=== PATIENT | female | born 1995 | race Two or more races ===

== ENCOUNTER 2017-01-11 12:07 | Emergency (ER) | payer OTHER ==
--- NOTE | ~2017-01-11 | ER ---
PATIENT'S NAME: [facility] AGE: 21 Y [address] ROOM: [place] [address] LOCATION: [facility] ADMIT DATE: 01/11/2017 ER/Outpatient Report DISCHARGE DATE: 01/11/2017 FAMILY PHYSICIAN: PHYSICIAN, NO ATTENDING PHYSICIAN: Almas Chavez Time of Arrival: 1207 hours. Time of Evaluation/Exam: 1207 hours. CHIEF COMPLAINT: Burn to the left breast. 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 She states it also splashed her left arm. She denies any other injury. Has not been sick in any way prior to this. ALLERGIES: PENICILLIN. CURRENT MEDICATIONS: None. PAST MEDICAL HISTORY: Benign. PAST SURGICAL HISTORY: Negative. SOCIAL HISTORY: She denies the use of tobacco, drugs, or alcohol. REVIEW OF SYSTEMS: All negative other than those mentioned in the HPI. PHYSICAL EXAMINATION: VITAL SIGNS: She states she is 5 feet 8 inches. She weighed 108.4 kg. Blood pressure is 161/81, pulse of 97, respirations 16, temperature of 98.6, and O2 saturation is 99% on room air. GENERAL APPEARANCE: She is awake, alert, and oriented x4. SKIN: [place], warm, and dry. RESPIRATORY: Respirations are even and nonlabored. Lung sounds are clear throughout. CARDIOVASCULAR: Heart is regular rate and rhythm. PATIENT'S NAME: [facility] AGE: 21 Y [address] ROOM: [place] [address] LOCATION: [facility] ADMIT DATE: 01/11/2017 ER/Outpatient Report DISCHARGE DATE: 01/11/2017 FAMILY PHYSICIAN: PHYSICIAN, NO ATTENDING PHYSICIAN: Almas Chavez BREASTS: The patient has redness of the left breast area medial aspect, does not cover the areola or the nipple area. No blistering is noted. Sloughing of skin noted. EXTREMITIES: No redness or discoloration of the left arm is seen. Left radial and ulnar pulses are strong. IMPRESSION: First-degree burn to the left breast. PLAN: Home, rest. Keep the area clean and dry. Instructed to change the dressing daily. She is to wash it with soap and water and reapply Silvadene. The patient was given the information to go to [facility] for drug test as required by her employer. She is to follow up with her primary provider in 2 to 3 days. She was given a prescription also for [place]. Informed to fill that after she did the drug screening and she verbalized understanding. SELENE HUTCHINSON APRN FOR [employer]/modl /[id number] d: 01/11/17 2154 t: 01/15/17 0653, OUTPATIENT REPORT
== END 2017-01-11 12:42 | disposition disaster alternative care site (69) ==
LOC: GACC 12:07
PROC: 2W24X4Z Dressing of Chest Wall using Bandage (ICD-10-PCS; principal; 2017-01-11)
DX: T21.11XA Burn of first degree of chest wall, initial encounter (principal); Z88.0 Allergy status to penicillin; X12.XXXA Contact with other hot fluids, initial encounter